=== PATIENT | female | born 1995 | race Caucasian/White ===

== ENCOUNTER 2017-05-25 14:55 | Observation (INO) | payer OTHER ==
[2017-05-25 15:27] VITALS: BMI 23.1
[2017-05-26 11:06] VITALS: BP 116/70; TEMP 98.1
--- NOTE | 2017-05-27 02:36 | HP ---
DATE OF SERVICE: 05/25/2017 REASON FOR ADMISSION: MS exacerbation. HISTORY OF PRESENT ILLNESS: Ms. Olson is a pleasant 21-year-old female with history of M S, is being admitted for treatment with IV steroids for MS exacerbation. She is currently a nd not able to receive any disease-modifying therapy. She has had a numerous exacerbation over the p ast few months which has led to this admission for treatment with IV steroids. She has had optic orlando ritis as well as numbness in both upper and lower extremities as well as difficulty with balance. PAST MEDICAL HISTORY: Significant for MS. PAST SURGICAL HISTORY: None significant. SOCIAL HISTORY: She denies smoking, alcohol use, or illicit drug use. She is single and currently i n school. FAMILY HISTORY: Noncontributory. CURRENT MEDICATIONS: Please review MAR. ALLERGIES: No known drug allergies. REVIEW OF SYSTEMS: As mentioned above in the HPI, otherwise negative. PHYSICAL EXAMINATION: VITAL SIGNS: Blood pressure of 116/70, pulse of 70, temperature of 98.1, respirations of 18, O2 sats of 99% on room air. GENERAL: Well-developed, well-nourished female in no apparent distress. RESPIRATORY: Clear to auscultation bilaterally. CARDIOVASCULAR: Regular rate and rhythm. NEUROLOGIC: Mental status: Patient is awake, alert, oriented x3. Speech and language: Fluent spee ch. Cranial nerves: Pupils are 3 mm and reactive. Visual quezada are intact. External muscles are intact. No nystagmus is noted. Face is symmetric. Tongue and uvula midline. Motor exam showed nor mal tone and bulk with 5/5 strength in both upper and lower extremities. Sensory: Diminished sensat ion in both upper and lower extremities. Deep tendon reflexes, brisk reflexes in both upper and lowe r extremities. Babinski, plantar responses extensor bilaterally. She has a positive Isael's bila terally. IMPRESSION: Acute multiple exacerbation. PLAN: Ms. Olson is a pleasant 21-year-old female who is being admitted for IV steroid tr eatment for MS exacerbation. I will give her IV Solu-Medrol 250 mg q.6 hours for 4 doses. If she to lerates the medication well and remained stable, she will be discharged to home post-infusion.
--- NOTE | 2017-05-27 09:14 | DIS ---
DATE OF ADMISSION: 05/25/2017 DATE OF DISCHARGE: 05/26/2017 ADMISSION DIAGNOSIS: Multiple sclerosis exacerbation. DISCHARGE DIAGNOSIS: Multiple sclerosis exacerbation, stable. PROCEDURES DONE DURING ADMISSION: None. CONSULTATIONS DONE DURING ADMISSION: None. BRIEF HOSPITAL COURSE: Ms. Olson is a pleasant 21-year-old female with history of multiple sclerosis and currently , not on any disease modifying therapy due to , is being admitted for one day of IV steroid. She has received 4 doses of 250 mg IV Solu-Medrol every 6 hours. She has tolerated the steroid well without any complications. She is now plan for discharge to home. She will follow up with my clinic as planned. SHANITA
== END 2017-05-26 14:53 | disposition home or self-care (01) ==
LOC: T4-B 14:55
PROVIDERS: ADMIT Psychiatry & Neurology Neurology; ATTEND Psychiatry & Neurology Neurology
DX: O99.350 Diseases of the nervous system complicating pregnancy, unspecified trimester (principal); G35 Multiple sclerosis
CPT/HCPCS: 96365; 96366; G0378; J2930; J7050

== ENCOUNTER 2017-11-15 17:07 | Inpatient (IN) | payer OTHER ==
[2017-11-15] MEDS ORDERED: methylPREDNISolone Sod Succ/PF 125 MG/2 ML VIAL ONE (18:44)
[2017-11-15 19:15] LABS: #Basophils 0.1 thou/uL (0.0-0.2); #Eosinphils 0.1 thou/uL (0.0-0.7); #Lymphocytes 3.9 thou/uL (1.20-3.40); #Monocytes 0.5 thou/uL (0.11-0.59); #Neutrophils 3.3 thou/uL (1.40-6.50); %Basophils 1.4 % (0.0-1.0); %Eosinophils 0.8 % (0.0-10.0); %Lymphocytes 49.3 % (28.0-48.0); %Monocytes 6.5 % (0.0-4.0); %Neutrophils 41.9 % (31.0-61.0); Hemoglobin 12.4 g/dL (12.0-16.0); Mean Corpuscular Volume 82.2 fL (78.0-98.0); Mean Platelet Volume 8.3 fL (7.4-10.4); Platelet Count 315 thou/uL (130-400); RBC Distribution Width 14.6 % (11.5-14.5); Red Blood Cell (RBC) Count 4.44 mill/uL (4.00-5.20); White Blood Cell (WBC) Count 7.9 thou/uL (4.8-10.8)
[2017-11-15 19:24] LABS: BHCG - Serum Negative (NEGATIVE); Pregs Control Background? CLEAR/WHITE (CLR/WHITE); Pregs Control Bar Appear? YES (CONTROL BAR)
[2017-11-15 19:36] LABS: ALT (SGPT) 29 U/L (8-55); AST (SGOT) 24 U/L (5-34); Albumin 4.6 g/dL (3.5-5.0); Alkaline Phosphatase 85 U/L (40-150); Anion Gap 12 mmol/L (10-20); BUN (Urea Nitrogen) 20 mg/dL (7.0-18.7); Bilirubin, Total 0.4 mg/dL (0.2-1.2); Calc. Creatinine Clearance 0 mL/min (70-130); Calcium 9.5 mg/dL (7.8-10.44); Carbon Dioxide 26 mmol/L (22-29); Chloride 106 mmol/L (98-107); Estimated GFR-MDRD 84; Globulin 3.2 g/dL (2.4-3.5); Glucose 82 mg/dL (70-105); Potassium 3.4 mmol/L (3.5-5.1); Protein, Total 7.8 g/dL (6.0-8.3); Sodium 141 mmol/L (136-145)
[2017-11-15 19:49] LABS: Bilirubin Negative (Negative); Blood, Urine Negative (Negative); Clarity CLOUDY (Clear); Glucose, Urine (Dipstick) Negative (Negative); Leukocyte Large (Negative); Nitrite Negative (Negative); Protein, Urine (Dipstick) Negative (Neg-Trace); Specific Gravity, Urine 1.014 (1.002-1.036); Urobilinogen 0.2 mg/dL (0.2-1.0)
[2017-11-15 19:51] LABS: Bacteria/HPF 1+ HPF (None Seen); Hyaline Casts/LPF 0-3 HYALINE CAST LPF (0-3 Hyaline); Pathc Cast-AUWi Flag 0.72 (0-2.49); RBC/HPF 0-3 HPF (0-3)
[2017-11-15] MEDS ORDERED: methylPREDNISolone Sod Succ 1,000 MG in Sodium Chloride 0.9% 100 ML IVPB ONE (20:00)
[2017-11-15] MEDS ORDERED: Acetaminophen 325 MG TAB PO PRN (22:31)
[2017-11-15] MEDS ORDERED: Ondansetron HCl/PF 4 MG/2 ML Vial SLOW IVP PRN (22:33)
[2017-11-15] MEDS ORDERED: Sodium Chloride 0.9% 1,000 ML IV SCH (22:45)
--- NOTE | 2017-11-15 23:13 | CT ---
HEAD CT WITHOUT CONTRAST: HISTORY: Weakness. COMPARISON: None. CORRELATION: Brain MRI from 10/17/2016. FINDINGS: No parenchymal hemorrhage. No extraaxial hematoma. Basilar cisterns are patent. Brain volume is ag e appropriate. Cortical bajwa white matter differentiation is preserved. The ventricles and sulci are patent and symmetric. Adequate aeration of the sinuses and mastoid air cells. The calvarium is intact. IMPRESSION: No acute intracranial process. POS: HUMBERTOH
[2017-11-15 23:15] VITALS: BMI 20.9
[2017-11-16 07:54] LABS: #Monocytes 0.1 thou/uL (0.11-0.59); #Neutrophils 3.9 thou/uL (1.40-6.50); %Basophils 0.2 % (0.0-1.0); %Eosinophils 0.1 % (0.0-10.0); %Lymphocytes 19.8 % (28.0-48.0); %Monocytes 1.3 % (0.0-4.0); %Neutrophils 78.5 % (31.0-61.0); Hemoglobin 12.1 g/dL (12.0-16.0); Mean Corpuscular HGB CONC 32.2 g/dL (32.0-36.0); Mean Corpuscular Hemoglobin 27.3 pg (25.0-35.0); Mean Corpuscular Volume 84.7 fL (78.0-98.0); Platelet Count 313 thou/uL (130-400); RBC Distribution Width 14.5 % (11.5-14.5); Red Blood Cell (RBC) Count 4.42 mill/uL (4.00-5.20)
[2017-11-16 07:56] LABS: Anion Gap 14 mmol/L (10-20); BUN (Urea Nitrogen) 14 mg/dL (7.0-18.7); Calc. Creatinine Clearance 107 mL/min (70-130); Calcium 9.4 mg/dL (7.8-10.44); Carbon Dioxide 20 mmol/L (22-29); Chloride 111 mmol/L (98-107); Estimated GFR-MDRD Greater than 90; Glucose 129 mg/dL (70-105); Sodium 141 mmol/L (136-145)
[2017-11-16] MEDS ORDERED: Folic Acid 1 MG TAB PO SCH (09:00)
[2017-11-16] MEDS ORDERED: Enoxaparin Sodium 40 MG/0.4 ML SYRINGE SC SCH (09:00)
[2017-11-16] MEDS ORDERED: Acetaminophen 325 MG TAB PO PRN (10:23)
[2017-11-16] MEDS ORDERED: Ondansetron ODT 4 MG TAB PO PRN (10:23)
[2017-11-16] MEDS ORDERED: ETONOGESTREL 68 MG SQ SCH (10:30)
--- NOTE | 2017-11-16 15:56 | HP ---
PRIMARY CARE PHYSICIAN: She does not have a primary care physician. Her neurologist is Dr. Gisell rodriguez. CHIEF COMPLAINT: Walking off balance and weakness. HISTORY OF PRESENT ILLNESS: Ms. Olson is a very pleasant 22-year-old female that has a history of multiple sclerosis that was diagnosed several years ago. She says that it was first recognized when she lost vision in her left eye which had left for about 6 months and then returned. She was actuall y in her usual state of health until a couple of days ago when she noticed that when she walks she wo uld seem to veer off to the left or to the right and felt a bit off balance. She also felt a bit wea k. She does note some dimness in her right eye as far as her vision, but she says this has been the same for the past year. She also noted that her legs felt a bit weak and she says, for example, when she tries to walk up some stairs, it takes quite a bit of time to lift her legs, but otherwise she f eels more or less back to normal. She says she was injured for her balance issues due to some fluid in her ear, which she says she was recently diagnosed with, but she went to the ER for evaluation at an outside ER and she was sent here for further evaluation. Otherwise, she denies any cough or conge stion, no fevers, no chills, no nausea, no vomiting, no other symptoms such as that associated with i nfection. REVIEW OF SYSTEMS: All systems were reviewed and are negative except for that mentioned in the histo ry of present illness. PAST MEDICAL HISTORY: Significant for multiple sclerosis. PAST SURGICAL HISTORY: Negative. ALLERGIES: No known drug allergies. SOCIAL HISTORY: She is engaged. She is a nonsmoker, nondrinker. She has 1 child. She just recentl y delivered a few months ago. FAMILY HISTORY: Negative. MEDICATION: Include Nexplanon, which she says she just have put in yesterday. PHYSICAL EXAMINATION: GENERAL: She is alert and oriented. She appears to be in no acute distress. VITAL SIGNS: Blood pressure was 131/71, heart rate 57, respiratory rate of 16, temperature is 97.9. HEENT: Pupils are equal, round, and reactive. Extraocular muscles are intact. Sclerae are anicteri c. Throat, no erythema, no exudates. NECK: No adenopathy, no bruits. LUNGS: Clear to auscultation. There is no wheezing, no rales. CARDIOVASCULAR: She has a normal S1, S2, no S3 or S4. No murmurs, clicks or rubs. ABDOMEN: Soft, it is nontender, nondistended. Positive for bowel sounds. No rebound, no guarding. EXTREMITIES: There is no clubbing, cyanosis, no edema. NEUROLOGIC: The exam is nonfocal with her muscle strength being 5/5 in both her upper and lower extr emities. Cranial nerves were intact. EARS: Also, on her left ear, the tympanic membrane was clear. There was no redness, no bulging of t he drums and no fluid. LABORATORY DATA: Her white blood cell count was 7.9, hemoglobin 12.4, hematocrit is 36.5, platelet c ount is 315. Sodium was 140, potassium 4.0, chloride is 111, CO2 is 20, BUN of 14, creatinine 0.73 a nd glucose is 129. Urinalysis, there was large leukocyte esterase and 1+ bacteria. She had a CT sca n of the brain which was essentially negative. ASSESSMENT AND PLAN: This is a pleasant 22-year-old female that presents with some difficulty with h er balance as well as some lower extremity weakness. This has been attributed to multiple sclerosis flare. The patient says she is feeling a lot better now that she has had an IV dose of steroids in t he ER and actually wants to go home. She says she has to get a documentation liaison for an additional day if s he stays and she also had planned to get braces and some other dental work done on tomorrow. She say s she has walked in the room without difficulty. We will, however, continue to monitor her until she can be seen by Dr. Burgess. He has seen her in the past and is familiar with her condition as she does live quite a distance away. Therefore, it is reasonable to at least let him evaluate her and recomm end any further medications or care at this time. She has already been given a fairly high dose of s teroids in the ER. Therefore, I will hold off on any additional steroids until directed by Dr. Burgess. She is ambulatory and therefore Lovenox is likely not needed for deep venous thrombosis prophylaxis . We will place her on SCDs while she is in the room.
[2017-11-16 19:28] VITALS: BP 140/78; TEMP 98.3
[2017-11-16] MEDS ORDERED: methylPREDNISolone Sod Succ 1 GM in Sodium Chloride 0.9% 250 ML 250 ML IVPB SCH (22:00)
--- NOTE | 2017-11-17 12:34 | CON ---
DATE OF CONSULTATION: 11/16/2017 REFERRING PHYSICIAN: Dr. Mike Breaux. REASON FOR CONSULTATION: Acute multiple sclerosis exacerbation. HISTORY OF PRESENT ILLNESS: Ms. Olson is a pleasant 22-year-old female who has been cons ulted for evaluation of acute MS exacerbation. The patient is a very well known patient to me from [facility]. She has a history of MS. She recently had delivered a new born. She had been off of dise ase modifying therapy due to her , post-delivery the patient started having numbness in both upper extremities. She also noticed worsening vision in both eyes as well as difficulty with gait i mbalance. She has noted trouble maintaining her balance and trouble with coordination. For this danielle son, she had called my office for which we had tried her on Medrol Dosepak, which helped initially wi th her symptoms for about 5-7 days. However, symptoms started recurring back again. She was advised to come to the hospital for direct admission for 3 days of IV steroids, while we were waiting for ap proval on her disease modifying therapy; however, due to travelling and accommodation issues, she was not able to come ahead. I also advised her to seek an urgent care at a nearby facility, who may be able to admit her to the hospital and provide IV Solu-Medrol for her acute MS exacerbation. However, she was not able to attend to that as well. She did go to an outside emergency room last weekend, b ut unfortunately the ER discharged her without providing any IV steroids. She was advised to continu e with Medrol Dosepak. She had called back again to my office yesterday with a complaint of worsenin g symptoms for which I had advised her that she needs to come to the emergency room or be admitted to the [facility] directly under my care; however, and thus decided to present to the [facility] Emergency Room. Currently, she denies any headache, chest pain, palpitation, difficulty breathing , dysarthria or dysphagia. PAST MEDICAL HISTORY: Significant for MS. PAST SURGICAL HISTORY: None significant. SOCIAL HISTORY: She denies smoking, alcohol use, or illicit drug use. She is currently not working and engaged and has recently delivered one child. FAMILY HISTORY: Noncontributory. CURRENT MEDICATIONS: Please review MAR. ALLERGIES: No known drug allergies. REVIEW OF SYSTEMS: As mentioned above in the HPI, otherwise negative. PHYSICAL EXAMINATION: VITAL SIGNS: Blood pressure of 133/72, pulse of 51, temperature of 98.2, respirations of 16, O2 sats of 98% on room air. GENERAL: Well-developed, well-nourished female in no apparent distress. RESPIRATORY: Clear to auscultation bilaterally. CARDIOVASCULAR: Regular rate and rhythm. NEUROLOGIC: Mental status: The patient is awake, alert, oriented x3. Speech and language: Fluent speech. Cranial nerves: Pupils are 3 mm and reactive. Visual quezada are intact. Extraocular muscl es are intact. No nystagmus is noted. Face is symmetric. Tongue and uvula midline. Motor exam amarilis wed normal tone and bulk with 4/5 strength in both upper extremities. Strength in both lower extremi ties is 4/5, more weak on proximal than distal. Sensory diminished sensation in both upper and lower extremities. Deep tendon reflexes 2-3+ reflexes in both upper and lower extremities. Babinski: Pl scot responses extensor on the right, equivocal on the left. Isael's signs are positive bilatera lly. Coordination: There is mild dysmetria noted on [id number] on both sides. Romberg is positive. Gait wide based, unsteady gait. LABORATORY DATA: Reviewed, which included CBC, CMP, urinalysis, which is significant for glucose of 129. Urinalysis showed 11-20 WBC with large leukocyte esterase and 1+ bacteria, otherwise unremarkab le. IMPRESSION: 1. Acute multiple sclerosis exacerbation. 2. Gait abnormality, due to #1. 3. Bilateral lower extremity weakness, due to #1. PLAN: Ms. Olson is a pleasant 22-year-old female with history of MS, currently off of di sease modifying therapy, presented with worsening bilateral lower extremity weakness and numbness in both upper and lower extremities, unsteadiness of her gait following her recent delivery. The sympto ms are likely indicative of acute MS observation. I agree with giving her IV Solu-Medrol 1 gram rafael y for 3 doses. She has issues with managing transportation as well as someone to take care of her ch ild at home and thus she requested that she wants to go on Wednesday, even though she would n ot be completing her 3 doses of IV steroids, it would be okay from my standpoint prior to discharge her on Wednesday morning. I have discussed with her at length that if she does have this recurrence of continued of her symptoms then she does need to be admitted for longer duration of IV steroids. W e are awaiting for her to be started on Ocrevus for which my office is in contact with her to set th at up as outpatient. Thank you for consultation.
--- NOTE | 2017-11-17 22:47 | DIS ---
DATE OF ADMISSION: 11/15/2017 DATE OF DISCHARGE: 11/17/2017 PRIMARY CARE PHYSICIAN: Out of town. DISCHARGE DISPOSITION: Home. PRIMARY DISCHARGE DIAGNOSIS: Multiple sclerosis flare. DISCHARGE MEDICATIONS: She is to continue with Nexplanon, which is an implant. CODE STATUS: FULL CODE. ALLERGIES: No known drug allergies. HOSPITAL COURSE: Ms. Olson is a very pleasant 22-year-old female who was diagnosed with multiple s clerosis few years back. At that time, it was discovered due to ocular symptoms. She was in her [facility] state of health until the time of admission when she began having difficulty with her gait and giorgi e generalized weakness. She was admitted and started on high dose IV Solu-Medrol. She was seen by h er neurologist, Dr. Burgess, who recommended 3 doses of IV steroids. He would have preferred her to sta y in the hospital for additional treatment, but the patient has a young child at home and was concern ed about transportation and as such requested to be discharged. She says that she was symptomaticall y improving. Therefore, after the third dose of the IV Solu-Medrol, she was subsequently discharged home in stable condition.
--- NOTE | 2017-11-18 08:57 | PQF ---
JOSH LAURA TONI MD [id number] CLINICAL DOCUMENTATION CLARIFICATION FORM: POST DISCHARGE DATE: 11/18/2017 ATTN: Dr. Breaux Please exercise your independent, professional judgment in responding to the clarification form. Clinical indicators are provided on the bottom of this form for your review Please check appropriate box(s): Please clarify if patient is: [ X] Greater than 6 weeks [ ] Six weeks or less [ ] Unable to determine In addition, please specify: Present on Admission (POA): [ X] Yes [ ] No [ ] Unable to determine For continuity of documentation, please document condition throughout progress notes and discharge summary. Thank You. CLINICAL INDICATORS - SIGNS / SYMPTOMS / LABS Per H&P: Multiple sclerosis. She has 1 child. She just recently delivered a few months ago. Per consultation: She recently had delivered a . She had been off of disease modifying therapy due to her , post-delivery she started having numbness in both upper extremities. She is currently not working and engaged and has recently delivered one child. RISK FACTORS Per chart: Multiple sclerosis exacerbation. TREATMENTS: Per chart: IV Solu-Medrol. (This form is maintained as a part of the permanent medical record) 2014 [employer] All Rights Reserved [employer]
== END 2017-11-17 07:00 | disposition left against medical advice (07) | DRG 60 ==
LOC: ERS 17:07 → T4-A 21:37
PROVIDERS: ADMIT Hospitalist; ATTEND Hospitalist
DX: G35 Multiple sclerosis (principal)
CPT/HCPCS: 36415; 70450; 80048; 80053; 81003; 81015; 84703; 85025; 96361; 96365; 96376; J1650; J2930; J7050